=== PATIENT | female | born 1990 | race Caucasian/White ===

== ENCOUNTER → 2016-10-24 | Outpatient (CLI) | payer OTHER ==
[2016-10-24 11:43] LABS: BASO % 0.4 % (0.0-1.0); EOS % 0.5 % (0.0-3.0); LARGE UNSTAINED CELL # 0.1 K/mm3 (0.0-0.4); LARGE UNSTAINED CELL % 1.6 % (0.0-4.0); LYMPH # 1.8 K/mm3 (1.5-6.5); LYMPH % 26.5 % (24.0-44.0); MEAN CORPUSCULAR HEMOGLOBIN 28.3 pg (27.0-33.0); MEAN CORPUSCULAR HGB CONC 33.2 g/dl (32.0-36.5); MEAN CORPUSCULAR VOLUME 85.3 fl (80.0-96.0); MONO # 0.2 K/mm3 (0.0-0.8); MONO % 3.9 % (0.0-5.0); NEUTROPHILS # 4.2 K/mm3 (1.8-7.7); NEUTROPHILS % 67.1 % (36.0-66.0); PLATELET COUNT, AUTOMATED 231 k/mm3 (150-450); RED CELL DISTRIBUTION WIDTH 12.7 % (11.5-14.5); WHITE BLOOD COUNT 6.2 K/mm3 (4.0-10.0)
[2016-10-24 12:31] LABS: HBsAg Prenatal NEGATIVE (NEGATIVE)
== END ==
LOC: M LRY 09:26
PROVIDERS: ATTEND Obstetrics & Gynecology
DX: Z34.81 Encounter for supervision of other normal pregnancy, first trimester (principal)

== ENCOUNTER → 2017-03-10 | Outpatient (CLI) | payer OTHER ==
[~2017-03-10] MED LIST: PREN29TA4 PO; PROAAER10 INH
== END ==
LOC: M LAB 08:08
PROVIDERS: ATTEND Obstetrics & Gynecology
DX: Z34.82 Encounter for supervision of other normal pregnancy, second trimester (principal)

== ENCOUNTER 2017-05-12 06:12 | Inpatient (IN) | payer OTHER ==
[~2017-05-12] VITALS: Ht 167.6 cm; Wt 106.6 kg
[2017-05-12] VITALS (8 sets, daily range): BP systolic 113–135; BP diastolic 55–82
[2017-05-12] MEDS ORDERED: LR 1,000 ML IV ONE (06:45)
[2017-05-12] MEDS ORDERED: BICITRA 30ML SOLN UDC PO ONE (06:45)
[2017-05-12 07:14] LABS: MEAN CORPUSCULAR HEMOGLOBIN 26.4 pg (27.0-33.0); MEAN CORPUSCULAR HGB CONC 33.1 g/dl (32.0-36.5); MEAN CORPUSCULAR VOLUME 79.7 fl (80.0-96.0); PLATELET COUNT, AUTOMATED 202 10^3/uL (150-450); WHITE BLOOD COUNT 9.9 10^3/uL (4.0-10.0)
[2017-05-12] MEDS ORDERED: MORPHINE PRES-FREE INJ 10 MG/10 ML VIAL (J2274) As Ordered ONE (08:25)
[2017-05-12] MEDS ORDERED: OXYTOCIN INJ 10 UNITS/ML VIAL (J2590) As Ordered ONE (08:27)
[2017-05-12] MEDS ORDERED: NALBUPHINE HCL 10 MG/ML AMP (J2300) IV PRN (08:43)
[2017-05-12] MEDS ORDERED: NALOXONE INJ 0.4 MG/1 ML VIAL (J2310) IV PRN ×2 (08:43)
[2017-05-12] MEDS ORDERED: METOCLOPRAMIDE INJ 10MG/2ML VIAL (J2765) IV PRN ×2 (08:43→10:30)
[2017-05-12] MEDS ORDERED: ONDANSETRON 4MG/2ML VIAL (J2405) IV PRN ×2 (08:43→10:30)
[2017-05-12] MEDS: PRENATAL VITAMINS CHEWABLE TABLET PO SCH (09:00)
[2017-05-12] MEDS ORDERED: ePHEDrine SULFATE 25 MG/5 ML(5MG/ML) SYRINGE As Ordered ONE (09:11)
[2017-05-12] MEDS ORDERED: ONDANSETRON 4MG/2ML VIAL (J2405) As Ordered ONE (09:56)
[2017-05-12] MEDS ORDERED: KETOROLAC 60 MG/2 ML VIAL (J1885) As Ordered ONE (09:57)
[2017-05-12] MEDS ORDERED: fentaNYL 100 MCG/2 ML INJECTION (J3010) IV PRN (10:30)
[2017-05-12] MEDS ORDERED: LR 1,000 ML IV SCH (10:30)
[2017-05-12] MEDS ORDERED: PERCOCET 5MG/325MG TAB PO PRN (10:30)
[2017-05-12] MEDS ORDERED: IBUP1TAB7 PO (11:14)
[2017-05-12] MEDS ORDERED: PERCOCET PO (11:15)
[2017-05-12] MEDS ORDERED: OXYTOCIN DRIP 30 UNITS in APPROPRIATE DILUENT 1 EA IV ONE (11:15)
[2017-05-12] MEDS ORDERED: MOM 30ML SUSPENSION UDC PO PRN (11:15)
[2017-05-12] MEDS ORDERED: DOCUSATE SODIUM 100 MG CAP PO PRN (11:15)
[2017-05-12] MEDS ORDERED: MEASLES,MUMPS,RUBELLA VACCINE INJ (MMR-II) (90707) SC SCH (11:15)
[2017-05-12] MEDS ORDERED: RHOGAM 300 MCG (1500 IU) INJ (J2790) IM SCH (11:15)
[2017-05-12] MEDS: LR 1,000 ML IV SCH ×3 (15:26→22:22)
[2017-05-12] MEDS: KETOROLAC 30 MG/ML VIAL (J1885) IV SCH ×2 (16:05→21:28)
--- NOTE | 2017-05-12 17:02 | RO ---
DATE OF PROCEDURE: 05/12/2017 PREPROCEDURE DIAGNOSES: 1. Intrauterine at 39 weeks. 2. History of prior section here for elective repeat lower transverse section. 3. Satisfied parity with undesired fertility. POSTPROCEDURE DIAGNOSES: 1. Intrauterine at 39 weeks. 2. History of prior section here for elective repeat lower transverse section. 3. Satisfied parity with undesired fertility. OPERATIVE PROCEDURE: 1. Repeat lower transverse section with bilateral tubal ligation using [place] method. SURGEON: Belkis Shetty MD AMMUNITION AND EXPLOSIVES HANDLER: Sergo Millan MD ANESTHESIA: Spinal. ESTIMATED BLOOD LOSS: 400 mL. URINE OUTPUT: 350 mL. INTRAVENOUS FLUIDS: 1400 mL of lactated Ringers solution. PREOPERATIVE ANTIBIOTICS: 2 grams of Ancef. SPECIMENS: Bilateral segments of fallopian tube. OPERATIVE FINDINGS: Live born female , Apgars 8 and 9. Weight was 3890 grams or 8 pounds 9 ounces. DESCRIPTION OF PROCEDURE: After informed consent was obtained and written consent was reviewed, the patient was brought to the operating room where spinal anesthesia was then placed. She was then placed in the supine position with a left lateral tilt. A Logan catheter was placed and set to gravity. She was then prepped and draped in a normal sterile fashion. A time-out in the operating room was then performed identifying the patient, procedure to be performed as well as drug allergies. Anesthesia was then tested and deemed to be adequate. A Pfannenstiel skin incision was then made along the previous skin incision and carried down through the underlying rectus fascia. The fascia was then scored and this incision was extended bilaterally. The fascia was then dissected off the underlying rectus muscles both superiorly and inferiorly. The rectus muscles were then in the midline. The peritoneum was then entered sharply. The vesicouterine peritoneum was then identified, was tented and excised to create a bladder flap. The Bladder Blade was then placed to retract back the bladder. A curvilinear incision was then made in the lower uterine segment. Amniotomy was then performed productive of clear fluid. The head was then brought to the level of the incision and was delivered atraumatically followed by shoulders and corpus. Cord was clamped times two and was cut. was taken over to the warmer with a good cry. Cord blood was obtained. Placenta was then drained and delivered grossly intact. The uterus was then exteriorized and cleared of all clots and debris. The uterine incision was closed in two layers using #0 Vicryl; first in a running locking fashion, followed by a second in a running nonlocking fashion for imbrication. There were several [id number] stitches placed for hemostasis. Next, [place] bilateral tubal ligation was then performed. The right fallopian tube was placed in traction, a window was created in the mesosalpinx. This area was doubly ligated using #3-0 chromic and was excised. Good hemostasis noted. In a similar fashion, the left fallopian tube was placed in traction, a window was created in mesosalpinx and this area was doubly ligated with #3-0 chromic and was excised. Good hemostasis was noted. Surgical sites were all inspected and noted to be hemostatic. The uterus was then returned into the patient's abdomen. Surgical sites were reinspected once again and noted to be hemostatic. The anterior peritoneum was then reapproximated with #3-0 Vicryl. The rectus muscles were reapproximated with #3-0 Vicryl. The fascia was then closed using #0 Vicryl in a running nonlocking fashion. The subcutaneous tissue was then irrigated and suctioned. Subcutaneous tissues were then reapproximated using #3-0 Vicryl. Several subdermal stitches were placed using #3-0 Vicryl and the skin was closed with #4-0 Monocryl in a subcuticular fashion. The incision was then clean and dry. Mastisol was applied above and below the incision. Steri-Strips were applied over the incision. The incision was then dressed. The patient was then taken to recovery in stable condition. Counts were correct.
[2017-05-13 02:19] VITALS: BP 125/58
[2017-05-13] MEDS: KETOROLAC 30 MG/ML VIAL (J1885) IV SCH ×2 (03:46→10:04)
[2017-05-13 05:46] VITALS: BP 112/61
[2017-05-13 06:36] LABS: MEAN CORPUSCULAR HEMOGLOBIN 26.9 pg (27.0-33.0); MEAN CORPUSCULAR HGB CONC 32.9 g/dl (32.0-36.5); MEAN CORPUSCULAR VOLUME 81.8 fl (80.0-96.0); PLATELET COUNT, AUTOMATED 159 10^3/uL (150-450); RED CELL DISTRIBUTION WIDTH 14.2 % (11.5-14.5); WHITE BLOOD COUNT 8.5 10^3/uL (4.0-10.0)
[2017-05-13] MEDS: LR 1,000 ML IV SCH (08:14)
[2017-05-13] MEDS ORDERED: PERCOCET 5MG/325MG TAB PO PRN (08:15)
[2017-05-13] MEDS: PRENATAL VITAMINS CHEWABLE TABLET PO SCH (08:34)
[2017-05-13] MEDS: PERCOCET 5MG/325MG TAB PO PRN ×2 (08:35→18:04)
[2017-05-13 09:30] VITALS: BP 113/52
[2017-05-13 14:26] VITALS: BP 119/57
[2017-05-13] MEDS: IBUPROFEN 800 MG TAB PO SCH (18:04)
[2017-05-13 18:26] VITALS: BP 132/71
[2017-05-14] MEDS: IBUPROFEN 800 MG TAB PO SCH ×2 (01:59→09:56)
[2017-05-14 06:00] VITALS: BP 119/70
[2017-05-14] MEDS: PERCOCET 5MG/325MG TAB PO PRN (06:35)
[2017-05-14] MEDS: PRENATAL VITAMINS CHEWABLE TABLET PO SCH (09:56)
[2017-05-14] MEDS ORDERED: COLA100C5 PO (10:02)
[2017-05-14] MEDS ORDERED: MOM30SS PO (10:03)
--- NOTE | 2017-05-14 16:33 | DSES ---
DATE OF ADMISSION: 05/12/2017 DATE OF DISCHARGE: 05/14/2017 DISCHARGE DIAGNOSIS: Elective repeat lower transverse section with undesired fertility. PROCEDURE PERFORMED: 1. Repeat section with bilateral tubal ligation. 2. Spinal anesthesia. CONDITION ON DISCHARGE: Stable. HISTORY AND HOSPITAL COURSE: Mrs. Barton presented at 39 weeks for scheduled section. She had expressed undesired fertility, underwent an uncomplicated section as well as bilateral tubal ligation. Was productive of a live born female infant, scores of 8 and 9, weight 3890 grams, 8 pounds 9 ounces. Estimated blood loss was 400 mL. She did well postoperatively. By postoperative day two, had medication all discharge criteria and was discharged home in stable condition. PHYSICAL EXAMINATION: On day of discharge, her vital signs were stable. She was afebrile. GENERAL APPEARANCE: Well appearing, in no acute distress. ABDOMEN: Soft, appropriately tender. Fundus was below umbilicus. Incision was clean, dry and intact, well approximated and not erythematous. EXTREMITIES: Negative for calf tenderness. DISCHARGE INSTRUCTIONS: 1. She was instructed to followup in two weeks for incision check, 2. She is to report severe pain, heavy vaginal bleeding, fever, incisional issues. 3. She is to remain on pelvic rest for six weeks. DISCHARGE MEDICATIONS: Ibuprofen and Percocet.
== END 2017-05-14 12:52 | disposition home or self-care (01) | DRG 766 ==
LOC: M LDI 06:12 → M OBS 11:37
PROVIDERS: ADMIT Obstetrics & Gynecology; ATTEND Obstetrics & Gynecology
PROC: 0UB70ZZ Excision of Bilateral Fallopian Tubes, Open Approach (ICD-10-PCS; 2017-05-12)
PROC: 10D00Z1 Extraction of Products of Conception, Low, Open Approach (ICD-10-PCS; principal; 2017-05-12 08:30)
DX: O34.211 Maternal care for low transverse scar from previous cesarean delivery (principal); Z3A.39 39 weeks gestation of pregnancy; Z30.2 Encounter for sterilization; Z37.0 Single live birth